=== PATIENT | male | born 1975 | race Caucasian/White ===

== ENCOUNTER 2020-07-01 08:09 | Inpatient (IN) | payer BC, OTHER ==
[~2020-07-01] VITALS: Ht 177.8 cm; Wt 115.3 kg
[~2020-07-01 08:09] MED LIST: AMLO-187 PO; ASPI-630 PO; CARV12.5 PO; DOCU-150 PO; GARL1CAP3 PO; GINK60CA3 PO; LAMO200T6 PO; LISI1TAB23 PO; LURA40TA PO; METF500T16 PO; OMEG1CAP6 PO; OXYC1TAB15 PO; RANI300C PO
[2020-07-01] MEDS ORDERED: ASPIRIN CHEWABLE 81 MG TABLET. PO ONE (08:30)
[2020-07-01 08:43] LABS: BASO # 0.2 x10^3/uL (0.0-0.2); BASO % 2 % (0-3); EOS # 0.2 x10^3/uL (0.0-0.7); EOS % 2 % (0-3); HEMATOCRIT 52.9 % (39.0-53.0); HEMOGLOBIN 18.4 g/dL (13.0-17.5); LYMPH # 2.8 x10^3/uL (1.0-4.8); LYMPH % 29 % (24-48); MEAN CORPUSCULAR HEMOGLOBIN 28 pg (25-35); MEAN CORPUSCULAR HGB CONC 35 g/dL (31-37); MEAN CORPUSCULAR VOLUME 82 fL (79-100); MONO # 0.7 x10^3/uL (0.0-1.1); MONO % 7 % (0-9); NEUT # 5.8 x10^3uL (1.8-7.7); NEUT % 60 % (31-73); PLATELET COUNT 190 x10^3/uL (140-400); RED BLOOD COUNT 6.47 x10^6/uL (4.30-5.70); RED CELL DISTRIBUTION WIDTH 13.4 % (11.5-14.5); WHITE BLOOD COUNT 9.7 x10^3/uL (4.0-11.0)
[2020-07-01 08:55] LABS: CALCIUM 8.5 mg/dL (8.5-10.1); CREATININE 1.2 mg/dL (0.7-1.3); GFR 65.5; POTASSIUM 3.9 mmol/L (3.5-5.1)
--- NOTE | 2020-07-01 08:55 | RAD ---
XR CHEST 1V CLINICAL INDICATIONS: Shortness of breath Comparison: July 02, 2016. Findings: No acute lung infiltrate or pleural effusion or pulmonary edema or lung mass or pneumothora x is seen. The heart size, pulmonary vasculature, mediastinum and both itzel are unremarkable. IMPRESSION: No acute radiographic abnormality is seen. Electronically signed by: Gokul Quinones MD (07/01/2020 8:53 AM) [id number]
--- NOTE | 2020-07-01 08:58 | PHYS DOC ---
Past History Past Medical History: Asthma, Diabetes, Hypertension, Other Additional Past Medical Histor: descending aortic dissection 1yr ago Past Surgical History: Other Additional Past Surgical Histo: hernia repair Alcohol Use: Rarely Drug Use: None Adult General Chief Complaint Chief Complaint: SHORTNESS OF BREATH HPI HPI Patient is a 44-year-old male presenting for shortness of breath. Patient worked overnight, states he came home and ate a meal and shortly after he laid down to go to sleep when he started developing shortness of breath and wheezing. Onset was 2 hours prior to arrival. Nothing known makes better, laying flat and physical exertion seem to make worse. Patient denies any overt pain but does admit " it feels like bubbling" deep in his substernal region without radiation. Timing of symptoms has been constant since onset. Patient reports history of treatment for hypertension and zwx-[id number]-[id number] diabetes among other things, states he has been out of all home medications "for a while" as he has not been able to afford them. Also has history of " I think descending aortic aneurysm" which he was seen and hospitalized for at [facility], no intervention was performed but admits he has biannual screening via CT imaging for this, last time this was supposed to be done was May 2020 but he did not follow-up on this. Associated symptoms today include nasal congestion, rhinorrhea, postnasal drip, shortness of breath, nonproductive cough and wheeze. Patient denies fever, known COVID-19 contact, ripping or tearing chest pain, abdominal pain, urinary symptoms, no changes in bladder or bowel function, no motor or sensory function changes. 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 States he works in a poorly ventilated area and often has inhalation exposure to concerning inhalants. Patient denies any personal history of tobacco use but was exposed to secondhand smoke from his father growing up as a child, used to carry an inhaler as a child but has not had nor required one in recent years. Review of Systems Review of Systems Fourteen body systems of review of systems have been reviewed. See HPI for pertinent positives and negative responses, other maharaj all other systems are negative, non-pertinent or non-contributory Current Medications Current Medications Current Medications Medications (Trade) Dose Ordered Sig/Jose Manuel Start Time Stop Time Status Last Admin Dose Admin Aspirin (Aspirin Chewable) 324 mg 1X ONCE 07/01/20 08:30 07/01/20 08:31 DC 07/01/20 08:28 324 MG Allergies Allergies Allergies Coded Allergies Type Severity Reaction Last Updated Verified erythromycin base Allergy Intermediate Rash 04/05/15 Yes Physical Exam Physical Exam General: Appears well, non toxic, and comfortable Skin: Warm, dry. Normal for ethnicity. HEENT: Atraumatic. PERRLA. Rhinorrhea and congestion. Nasal turbinates boggy b/l. Moist mucous membranes. Uvula midline. Maintaining secretions. No phonation changes. Neck: Trachea midline. Normal ROM. No stridor. Respiratory: Normal WOB. Tachypneic without overt respiratory distress or obvious accessory muscle use. Patient does have diffuse crackles most appreciated in bilateral lower bases Cardiovascular: Tachycardic rate with regular rhythm. Normal peripheral perfusion. Abdomen: Soft. Non tender. No distension. Back: Normal ROM. Musculoskeletal: No swelling or deformity. Neuro: Alert and oriented x 4. MAEE. Lymph: No cervical LAD. Psych: Normal affect and mood. Current Patient Data Vital Signs Vital Signs Date Time Temp Pulse Resp B/P (MAP) Pulse Ox O2 Delivery O2 Flow Rate FiO2 07/01/20 08:34 97.0 120 26 167/112 (130) 94 Lab Results Laboratory Tests Test 07/01/20 08:30 White Blood Count 9.7 x10^3/uL (4.0-11.0) Red Blood Count 6.47 x10^6/uL (4.30-5.70) H Hemoglobin 18.4 g/dL (13.0-17.5) H Hematocrit 52.9 % (39.0-53.0) Mean Corpuscular Volume 82 fL (79-100) Mean Corpuscular Hemoglobin 28 pg (25-35) Mean Corpuscular Hemoglobin Concent 35 g/dL (31-37) Red Cell Distribution Width 13.4 % (11.5-14.5) Platelet Count 190 x10^3/uL (140-400) Neutrophils (%) (Auto) 60 % (31-73) Lymphocytes (%) (Auto) 29 % (24-48) Monocytes (%) (Auto) 7 % (0-9) Eosinophils (%) (Auto) 2 % (0-3) Basophils (%) (Auto) 2 % (0-3) Neutrophils # (Auto) 5.8 x10^3uL (1.8-7.7) Lymphocytes # (Auto) 2.8 x10^3/uL (1.0-4.8) Monocytes # (Auto) 0.7 x10^3/uL (0.0-1.1) Eosinophils # (Auto) 0.2 x10^3/uL (0.0-0.7) Basophils # (Auto) 0.2 x10^3/uL (0.0-0.2) EKG EKG EKG ordered and reviewed by myself at 0842 hrs. as sinus rhythm at 112 bpm, unremarkable intervals, left axis deviation, T wave inversions noted in lead aVR and aVL, no acute ischemic findings, no STEMI Radiology/Procedures Radiology/Procedures XR CHEST 1V CLINICAL INDICATIONS: Shortness of breath Comparison: July 02, 2016. Findings: No acute lung infiltrate or pleural effusion or pulmonary edema or lung mass or pneumothorax is seen. The heart size, pulmonary vasculature, mediastinum and both itzel are unremarkable. IMPRESSION: No acute radiographic abnormality is seen. Electronically signed by: Gokul Quinones MD (07/01/2020 8:53 AM) [id number] EXAM: CT angiography of the chest with intravenous contrast. HISTORY: Shortness of breath. TECHNIQUE: Computed tomographic images of the chest were obtained following the administration of intravenous contrast according to angiography protocol. Multiplanar reformatting was performed and three dimensional maximum intensity projection images were obtained. *One or more of the following individualized dose reduction techniques were utilized for this examination: 1. Automated exposure control. 2. Adjustment of the mA and/or kV according to patient size. 3. Use of iterative reconstruction technique. COMPARISON: None. FINDINGS: Evaluation for pulmonary embolism is limited due to suboptimal contrast opacification of the pulmonary arteries. No central pulmonary embolism is seen. There is no aortic aneurysm or dissection. There is a prominent right paratracheal lymph node measuring 1.6 cm transaxially. There are are prominent bilateral hilar lymph nodes, the largest of which measures 1.6 cm within the right hilum. There is trace pericardial fluid. There is no pneumothorax or pleural effusion. There is groundglass infiltrate throughout both lungs. No consolidation is seen. There is no suspicious pulmonary nodule. There is no acute finding involving the upper abdomen or visualized osseous structures. There is degenerative change throughout the thoracic spine. There are multiple thoracic endplate Schmorl's nodes. IMPRESSION: 1. No convincing pulmonary embolism. Evaluated is limited due to suboptimal contrast opacification of the distal pulmonary arteries. 2. Groundglass infiltrate scattered throughout both lungs. Correlate for atypical pneumonia. 3. Prominent mediastinal and hilar lymph nodes, likely reactive given the aforementioned infiltrate. Electronically signed by: Molly Montoya MD (07/01/2020 11:02 AM) [id number] Heart Score HEART Score for Chest Pain: HEART Score for Chest Pain Response (Comments) Value History Slighlty/Non-Suspicious 0 Age >45 - < 65 1 Risk Factors 1 or 2 Risk Factors 1 Troponin < Normal Limit 0 Total 2 Risk Factors: Risk Factors: DM, Current or recent (<one month) smoker, HTN, HLP, family history of CAD, obesity. Risk Scores: Risk Factors: DM, Current or recent (<one month) smoker, HTN, HLP, family history of CAD, obesity. Course & Med Decision Making Course & Med Decision Making Airway patent, patient had increased work of breathing and hypoxic throughout duration of ER visit, vitals consistent for tachycardia and tachypnea on arrival Comprehensive history and physical exam performed with subsequent diagnostic work-up ordered Patient responded to ER intervention. Remained hypoxic and continued to require supplemental oxygen to keep O2 saturations greater than 90% CT chest showed findings consistent for atypical pneumonia. IV azithromycin and Rocephin administered while in ER Dr. oHover contacted regarding need for admission for continued inpatient medical management, he accepted patient under his care Patient updated on proposed plan of care, he was amenable for transport to [facility] for admission for continued inpatient medical management. All questions and concerns addressed prior to ER transportation to [facility] Critical Care Time This patient required critical care. Due to the fact that the patient required a significant amount of one on one physician - patient contact time, ordering and review of studies, arranging urgent treatment with development of a management plan, evaluation of patients response to treatment with frequent reassessments, and discussions with other providers this patient required 62 minutes of critical care time. Critical care time was indicated due to the inherent instability and/or potential for instability in this patient. The critical care time that is allocated to this patient is above and beyond any time spent on any other billable procedures performed on this patient. Dragon Disclaimer Dragon Disclaimer This electronic medical record was generated, in whole or in part, using a voice recognition dictation system. Departure Departure: Impression: Primary Impression: Atypical pneumonia Additional Impressions: Person under investigation for COVID-19 Hypoxia Disposition: ADMITTED INPT THIS HOSP Admitting Physician: Vipin Hoover Condition: STABLE Referrals: PCP,NO (PCP) Problem Qualifiers TYE GALLAGHER DO Jul 01, 2020 08:58
[2020-07-01 09:07] LABS: ALBUMIN 3.8 g/dL (3.4-5.0); ALBUMIN/GLOBULIN RATIO 1.2 (1.0-1.7); TOTAL BILIRUBIN 0.5 mg/dL (0.2-1.0); TOTAL PROTEIN 6.9 g/dL (6.4-8.2)
[2020-07-01] MEDS ORDERED: amLODIPine BESYLATE 5 MG TABLET PO ONE (09:15)
[2020-07-01] MEDS ORDERED: IV NORMAL SALINE 1,000ML 1,000 ML IV ONE (09:15)
[2020-07-01 10:07] LABS: INFLUENZA A PATIENT NEGATIVE (NEGATIVE); INFLUENZA B PATIENT NEGATIVE (NEGATIVE)
[2020-07-01 10:12] LABS: BARBITURATES NEG (NEG); BENZODIAZEPINES NEG (NEG); CANNABINOIDS NEG (NEG); COCAINE NEG (NEG); METHADONE NEG (NEG); OPIATES NEG (NEG); PHENCYCLIDINE NEG (NEG)
[2020-07-01 10:15] LABS: AMPHETAMINE/METHAMPHETAMINE NEG (NEG)
[2020-07-01] MEDS ORDERED: IOHEXOL 350 MG/ML 100 ML VIAL. IV ONE (10:30)
[2020-07-01] MEDS ORDERED: CONTRAST GIVEN. MC PRN (10:45)
--- NOTE | 2020-07-01 11:05 | RAD ---
EXAM: CT angiography of the chest with intravenous contrast. HISTORY: Shortness of breath. TECHNIQUE: Computed tomographic images of the chest were obtained following the administration of int ravenous contrast according to angiography protocol. Multiplanar reformatting was performed and three dimensional maximum intensity projection images were obtained. *One or more of the following individualized dose reduction techniques were utilized for this examina tion: 1. Automated exposure control. 2. Adjustment of the mA and/or kV according to patient size. 3. Use of iterative reconstruction technique. COMPARISON: None. FINDINGS: Evaluation for pulmonary embolism is limited due to suboptimal contrast opacification of th e pulmonary arteries. No central pulmonary embolism is seen. There is no aortic aneurysm or dissectio n. There is a prominent right paratracheal lymph node measuring 1.6 cm transaxially. There are are pr ominent bilateral hilar lymph nodes, the largest of which measures 1.6 cm within the right hilum. The re is trace pericardial fluid. There is no pneumothorax or pleural effusion. There is groundglass infiltrate throughout both lungs. No consolidation is seen. There is no suspicious pulmonary nodule. There is no acute finding involvin g the upper abdomen or visualized osseous structures. There is degenerative change throughout the tho racic spine. There are multiple thoracic endplate Schmorl's nodes. IMPRESSION: 1. No convincing pulmonary embolism. Evaluated is limited due to suboptimal contrast opacification of the distal pulmonary arteries. 2. Groundglass infiltrate scattered throughout both lungs. Correlate for atypical pneumonia. 3. Prominent mediastinal and hilar lymph nodes, likely reactive given the aforementioned infiltrate. Electronically signed by: Molly Montoya MD (07/01/2020 11:02 AM) [id number]
[2020-07-01] MEDS ORDERED: ACETAMINOPHEN 325 MG TABLET PO PRN (11:15)
[2020-07-01] MEDS ORDERED: AZITHROMYCIN 500 MG in IV NORMAL SALINE 250ML 250 ML IV ONE (11:15)
[2020-07-01] MEDS ORDERED: AZITHROMYCIN 500 MG VIAL. IV ONE (11:38)
[2020-07-01] MEDS ORDERED: IV NORMAL SALINE 250ML 250 ML ONE (11:38)
[2020-07-01] MEDS ORDERED: cefTRIAXone SODIUM 1 GM VIAL ONE (11:38)
[2020-07-01] MEDS ORDERED: IV NORMAL SALINE 50ML 50 ML ONE (11:38)
--- NOTE | 2020-07-01 13:31 | EKG ---
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
[2020-07-01] MEDS ORDERED: ENOXAPARIN 40 MG/0.4 ML SYRINGE. SQ SCH (14:15)
[2020-07-01] MEDS ORDERED: DEXTROSE 50% 25 GM / 50ML DISP.SYRIN. IV PRN (14:15)
--- NOTE | 2020-07-01 14:21 | HP ---
ADMIT DATE: 07/01/2020 ATTENDING PHYSICIAN: Dr. Perera. CHIEF COMPLAINT: Shortness of breath. HISTORY OF PRESENT ILLNESS: The patient is a 44-year-old gentleman, very active. He has a 2-day history of increasing shortness of breath. He has had low-grade fevers, nonproductive cough, some fevers and chills. In the ED, initial chest x-ray demonstrated no acute infiltrates; however, he had persistent hypoxemia requiring supplemental oxygen. Whenever they took his oxygen off, he desaturated to the mid 80s. We are concerned about a blood clot. I asked the ER physician to order a CT of the chest to look for blood clots; however, no clots were identified, but he does have ground glass appearing infiltrates in both bases bilaterally that is very subtle and picked up on the CT scan, not picked up by the chest x-ray. He has been swabbed for COVID-19, most likely has atypical pneumonia, certainly consistent with COVID-19 infection. PAST MEDICAL HISTORY: Significant for obesity, essential hypertension, and type 2 diabetes. CURRENT MEDICATIONS: Reviewed. He was taking amlodipine, aspirin, Coreg, docusate, Lamictal, lisinopril, hydrochlorothiazide, Latuda, metformin, [place]yth-3 acid, oxycodone and Zantac. ALLERGIES: HE HAS ALLERGIES TO ERYTHROMYCIN BASE. SOCIAL HISTORY: He is a nonsmoker, nondrinker. 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 FAMILY HISTORY: Father of complications of stroke at age 69. Mom is alive at age 75. PAST SURGICAL HISTORY: Hernia repair. REVIEW OF SYSTEMS: Significant for the localized symptoms of respiratory distress, mild nonproductive cough. No COVID exposure that he is aware of. All other systems reviewed and turned to be negative. PHYSICAL EXAMINATION: GENERAL: When I saw him, this is a pleasant young male. INITIAL VITAL SIGNS: Showed a blood pressure of 167/110, pulse 102 and regular, temperature 97.0 degrees Fahrenheit, oxygen saturation 94% on 2 liters by nasal cannula. HEENT: Head is without trauma. Pupils are reactive. Sclerae nonicteric. Oropharynx clear. NECK: Supple, no bruits. No stridor. LUNGS: Minimal rhonchi at bases. CARDIOVASCULAR: Showed distant heart tones. No gallops. Peripheral pulses are palpable and full. ABDOMEN: Soft, obese, protuberant. No organomegaly. Bowel sounds are hypoactive. EXTREMITIES: Showed no cyanosis or edema. NEUROLOGIC: Focally intact. SKIN: Warm and dry. LABORATORY DATA: Hemoglobin is 18.4 g/dL with a white count of 9700. Electrolytes are within normal range. Nonfasting blood sugar 346. Troponin initially was 0.02. ASSESSMENT: 1. A 44-year-old gentleman with atypical pneumonia, most likely COVID-19. 2. Hypoxemia, requiring supplemental oxygen. 3. Type 2 diabetes mellitus. 4. Secondary polycythemia. PLAN: 1. Admit to the inpatient unit. 2. Decadron. 3. Empiric Lovenox. 4. Accu-Cheks. 5. We will treat his sugars accordingly. LEÓN PERERA MD DR: JEFRY/laurel JOB#: [id number] / [id number]
[2020-07-01 15:49] VITALS: BP 143/96
--- NOTE | 2020-07-01 16:16 | NUR ---
PATIENT IS 44 Y O MALE ARRIVED TO ROOM 120 VIA EMS. PATIENT IS A/O X4, CALM AND PLEASANT UPON ASSESSMENT. PATIENT STATED HE WENT TO ER BECAUSE HE STARTED FEELING SOB AND DIFFICULTY BREATHING AND COUGH AFTER COMING HOME FROM WORK , HE WORK OVERNIGHT. PT STATED HE IS FEELING BETTER AFTER HAVING SOME O2 TX AT ED. PATIENT IS CURRENTLY ON RA WITH SAT 95%. DENIED PAIN, N/V/D. PATIENT IS ORIENTED TO ROOM AND HOSPITAL POLICIES. DOCTORS ORDERS OBTAINED WILL CONTINUE TO MONITOR.
[2020-07-01] MEDS: INSULIN LISPRO 300 UNITS/3 ML VIAL. SQ SCH (17:09)
[2020-07-01 20:36] VITALS: BP 130/88
[2020-07-01 23:45] VITALS: BP 160/108
[2020-07-02] MEDS: metFORMIN 500 MG TABLET PO SCH ×2 (00:15→08:38)
[2020-07-02] MEDS: LISINOPRIL 20 MG TABLET PO SCH ×2 (00:16→08:38)
--- NOTE | 2020-07-02 00:34 | NUR ---
CALLED TO NOTIFY OF ELEVATED BP AND BS. RECEIVED ORDERS FOR LISINOPRIL AND METFORMIN. NO OTHER ORDERS RECEIVED. PT IS UNABLE TO REMEMBER HOME MEDS. WILL CALL MOM IN THE MORNING TO GET A MED REC.
[2020-07-02 02:56] VITALS: BP 152/98
[2020-07-02] MEDS ORDERED: PANT40TA6 PO (06:01)
[2020-07-02] MEDS ORDERED: EMPA10TA PO (06:01)
[2020-07-02] MEDS ORDERED: AMLO-187 PO (06:01)
[2020-07-02] MEDS ORDERED: CARV25TA2 PO (06:01)
[2020-07-02] MEDS ORDERED: ATOR20TA58 PO (06:01)
[2020-07-02 06:10] VITALS: BP 182/123
[2020-07-02 06:11] LABS: BASO # 0.1 x10^3/uL (0.0-0.2); BASO % 1 % (0-3); EOS # 0.2 x10^3/uL (0.0-0.7); EOS % 2 % (0-3); HEMOGLOBIN 16.4 g/dL (13.0-17.5); LYMPH # 2.5 x10^3/uL (1.0-4.8); LYMPH % 24 % (24-48); MEAN CORPUSCULAR HEMOGLOBIN 28 pg (25-35); MEAN CORPUSCULAR HGB CONC 34 g/dL (31-37); MEAN CORPUSCULAR VOLUME 82 fL (79-100); MONO % 9 % (0-9); NEUT # 6.7 x10^3uL (1.8-7.7); NEUT % 63 % (31-73); PLATELET COUNT 186 x10^3/uL (140-400); RED BLOOD COUNT 5.82 x10^6/uL (4.30-5.70); RED CELL DISTRIBUTION WIDTH 13.5 % (11.5-14.5); WHITE BLOOD COUNT 10.5 x10^3/uL (4.0-11.0)
[2020-07-02 06:19] LABS: CALCIUM 8.1 mg/dL (8.5-10.1); CREATININE 0.8 mg/dL (0.7-1.3); GFR 104.5; POTASSIUM 3.8 mmol/L (3.5-5.1)
[2020-07-02] MEDS ORDERED: amLODIPine BESYLATE 10 MG TABLET PO ONE (06:30)
[2020-07-02] MEDS ORDERED: CARVEDILOL 12.5 MG TABLET PO ONE (06:30)
[2020-07-02] MEDS ORDERED: PANTOPRAZOLE 40 MG TABLET. PO SCH (07:30)
[2020-07-02 08:38] VITALS: BP 182/123
[2020-07-02] MEDS: INSULIN LISPRO 300 UNITS/3 ML VIAL. SQ SCH (08:39)
[2020-07-02] MEDS ORDERED: EMPAGLIFLOZIN 10 MG TABLET. PO SCH (09:00)
[2020-07-02] MEDS ORDERED: DEXAMETHASONE SOD PHOS 4 MG/ML VIAL. IVP SCH (09:00)
--- NOTE | 2020-07-02 10:50 | DS ---
DATE OF DISCHARGE: 07/02/2020 ATTENDING PHYSICIAN: Dr. Perera. FINAL DISCHARGE DIAGNOSES: 1. Atypical pneumonia at the bases, most likely COVID-19, swab is pending. 2. Hypoxemia, resolved. 3. Type 2 diabetes. 4. Secondary polycythemia. 5. Essential hypertension. HISTORY AND PHYSICAL: This pleasant 44-year-old gentleman with underlying diabetes and hypertension, presented with cough, chills and shortness of breath. He was found to have ground glass appearing infiltrates on CT of the chest. He required supplemental oxygen. He is admitted for further treatment and evaluation. He is not aware of any exposure. His COVID-19 swab was still pending at the time of discharge. PHYSICAL EXAMINATION: Please see the dictated note. PERTINENT LABORATORY AND X-RAY STUDIES: Admission hemoglobin was 18.4 g/dL with hydration, it came down to 16.4 g/dL, white count 10,500. Electrolytes are within normal range. Nonfasting blood sugar 152. COURSE IN THE HOSPITAL: The patient was admitted, started on empiric Decadron along with Lovenox, IV hydration, supplemental oxygen. He did well. He improved by the next day. His room air saturations was quite adequate, it was 98% on room air. Blood pressure was still marginal 150-160, pulse was normal and his temperature was 97.8 degrees Fahrenheit. I suggested that he can go home. We will keep him on Decadron 8 mg daily for the next 5 days and stop. In addition, Tussionex 5 mL q.12 hours p.r.n. cough and no change in his home meds. I did ask him to increase his metformin to 1000 mg b.i.d. He will continue his pantoprazole, Jardiance, Coreg, Lipitor and amlodipine doses unchanged. He will follow up with his PCP. He still remains contagious. He is going to call tomorrow for the results of his COVID-19 coronavirus swab. He was discharged then in stable condition with explicit instructions and followup care. LEÓN PERERA MD DR: JEFRY/laurel JOB#: [id number] / [id number]
[2020-07-02] MEDS ORDERED: ATORVASTATIN CALCIUM 20 MG TABLET PO SCH (21:00)
[2020-07-03] MEDS ORDERED: CARVEDILOL 12.5 MG TABLET PO SCH (08:00)
[2020-07-03] MEDS ORDERED: amLODIPine BESYLATE 10 MG TABLET PO SCH (09:00)
--- NOTE | 2020-07-04 09:08 | NUR ---
IP: patient notified of COVID result.
== END 2020-07-02 11:12 | disposition home or self-care (01) | DRG 177 ==
LOC: ER 08:09 → 1 SOUTH 11:20
PROVIDERS: ADMIT Hospitalist; ATTEND Hospitalist
DX: U07.1 COVID-19 (principal); J12.82 Pneumonia due to coronavirus disease 2019; D75.1 Secondary polycythemia; E11.9 Type 2 diabetes mellitus without complications; I10 Essential (primary) hypertension; J45.909 Unspecified asthma, uncomplicated; R09.02 Hypoxemia; E66.9 Obesity, unspecified; Z20.822 Contact with and (suspected) exposure to COVID-19; Z77.098 Contact with and (suspected) exposure to other hazardous, chiefly nonmedicinal, chemicals; Z77.22 Contact with and (suspected) exposure to environmental tobacco smoke (acute) (chronic); Z79.84 Long term (current) use of oral hypoglycemic drugs; Z88.8 Allergy status to other drugs, medicaments and biological substances; Z79.899 Other long term (current) drug therapy; Z68.36 Body mass index [BMI] 36.0-36.9, adult
CPT/HCPCS: 36415; 71045; 71275; 80048; 80053; 80307; 82947; 83880; 84484; 85025; 85379; 87804; 93005; 96361; 96365; 96368; 99291; J0456; J0696; J1100; J1650; J1815; J7050; Q9967; U0003; J7030

== ENCOUNTER 2021-04-10 00:05 | Emergency (ER) | payer BC ==
[~2021-04-10] VITALS: Ht 177.8 cm; Wt 110.0 kg
[~2021-04-10 00:05] MED LIST changes: +ATOR20TA58 PO; +CARV25TA2 PO; -DOCU-150 PO; +DOCU-158 PO; +EMPA10TA PO; +PANT40TA6 PO
[2021-04-10] MEDS ORDERED: cloNIDine HCL 0.1 MG TABLET PO ONE (00:30)
[2021-04-10] MEDS ORDERED: LISINOPRIL 10 MG TABLET PO ONE (00:30)
[2021-04-10] MEDS ORDERED: hydrALAZINE 20 MG/ML VIAL. IV ONE (00:30)
[2021-04-10] MEDS ORDERED: OXYMETAZOLINE 0.05% NASAL SPRAY 30ML BOTTLE. NS ONE (00:30)
--- NOTE | 2021-04-10 00:31 | PHYS DOC ---
Past History Past Medical History: Asthma, Diabetes, Hypertension, Other Additional Past Medical Histor: descending aortic dissection 1yr ago Past Surgical History: Other Additional Past Surgical Histo: hernia repair Alcohol Use: None Drug Use: None General Adult EDM: Chief Complaint: NOSEBLEED HPI: HPI: 45-year-old male presents with left-sided nosebleed. He thought that he had a runny nose but then discovered that it was bleeding. He has tried to pack it with paper towels but he believes it is still running. He denies any falls or trauma. He has no headache, chest pain, dizziness, or any other symptoms. The patient has a history of aortic dissection was treated with medication. He is supposed to be on high blood pressure medicine but does not take it. He has not had any in over a month. Patient denies fever or chills. Review of Systems: Review of Systems: Constitutional: Denies fever or chills Eyes: Denies change in visual acuity HENT: Left-sided nosebleed Respiratory: Denies cough or shortness of breath Cardiovascular: Denies chest pain or edema GI: Denies abdominal pain, nausea, vomiting, bloody stools or diarrhea : Denies dysuria Musculoskeletal: Denies back pain or joint pain Integument: Denies rash Neurologic: Denies headache, focal weakness or sensory changes Endocrine: Denies polyuria or polydipsia Lymphatic: Denies swollen glands Psychiatric: Denies depression or anxiety Current Medications: Current Meds: Current Medications Medications (Trade) Dose Ordered Sig/Jose Manuel Start Time Stop Time Status Last Admin Dose Admin Clonidine HCl (Catapres) 0.2 mg 1X ONCE 04/10/21 00:30 04/10/21 00:31 Hydralazine HCl (Apresoline) 10 mg 1X ONCE 04/10/21 00:30 04/10/21 00:31 Lisinopril (Prinivil) 20 mg 1X ONCE 04/10/21 00:30 04/10/21 00:31 Oxymetazoline HCl (Afrin) 2 spray 1X ONCE 04/10/21 00:30 04/10/21 00:31 Allergies: Allergies: Allergies Coded Allergies Type Severity Reaction Last Updated Verified erythromycin base Allergy Intermediate Rash 04/05/15 Yes Physical Exam: PE: Constitutional: Well developed, well nourished, no acute distress, non-toxic appearance. [] HENT: Normocephalic, atraumatic, bilateral external ears normal, oropharynx moist, no oral exudates, nose with evidence of recent bleed of the left nare. [] Eyes: PERRLA, EOMI, conjunctiva normal, no discharge. [] Neck: Normal range of motion, no tenderness, supple, no stridor. [] Cardiovascular: Heart rate regular rhythm, no murmur [] Lungs & Thorax: Bilateral breath sounds clear to auscultation [] Abdomen: Bowel sounds normal, soft, no tenderness, no masses, no pulsatile masses. [] Skin: Warm, dry, no erythema, no rash. [] Back: No tenderness, no CVA tenderness. [] Extremities: No tenderness, no cyanosis, no clubbing, ROM intact, no edema. [] Neurologic: Alert and oriented X 3, normal motor function, normal sensory function, no focal deficits noted. [] Psychologic: Affect normal, judgement normal, mood normal. [] Current Patient Data: Vital Signs: Vital Signs Date Time Temp Pulse Resp B/P (MAP) Pulse Ox O2 Delivery O2 Flow Rate FiO2 04/10/21 00:16 98.2 83 16 265/160 (195) 96 Room Air EKG: EKG: Sinus rhythm, rate 84, leftward axis, no significant ST elevation, Q waves 2, 3, aVF. [] Radiology/Procedures: Radiology/Procedures: [] Heart Score: C/O Chest Pain: N/A Risk Factors: Risk Factors: DM, Current or recent (<one month) smoker, HTN, HLP, family history of CAD, obesity. Risk Scores: Score 0 - 3: 2.5% MACE over next 6 weeks - Discharge Home Score 4 - 6: 20.3% MACE over next 6 weeks - Admit for Clinical Observation Score 7 - 10: 72.7% MACE over next 6 weeks - Early Invasive Strategies Course & Med Decision Making: Course & Med Decision Making Pertinent Labs and Imaging studies reviewed. (See chart for details) On arrival the patient had a blood pressure of 265/160. We will check it on the other side given his history of dissection. I have ordered 0.2 of clonidine, 20 mg lisinopril, 10 mg of hydralazine to start. The patient labs are si gnificant for glucose of 306 with a normal anion gap. I ordered 10 mg of metoprolol IV and 5 units of regular insulin. His EKG suggests myocardial damage at some point but does not appear to be acute. He has no chest pain or shortness of breath at this time. Despite his blood pressure, he is completely asymptomatic. We did give him Afrin to control his nosebleed. It is controlled at this time. The patient's blood pressure has improved to 172/112. I strongly advised him to follow-up with his primary physician and get back on hypertension medication. He states verbal understanding. He is stable for discharge at this time. [] Dragon Disclaimer: Dragon Disclaimer: This electronic medical record was generated, in whole or in part, using a voice recognition dictation system. Departure Departure: Impression: Primary Impression: Anterior epistaxis Additional Impression: Hypertension Qualified Codes: I10 - Essential (primary) hypertension Referrals: PCP,NO (PCP) Patient Instructions: Hyperglycemia, [id number], Hypertension, [id number], Nosebleed, [id number] MIKAEL MEDINA DO Apr 10, 2021 00:31
[2021-04-10 00:58] LABS: BASO % 0 % (0-3); EOS # 0.2 x10^3/uL (0.0-0.7); EOS % 2 % (0-3); HEMATOCRIT 51.6 % (39.0-53.0); HEMOGLOBIN 17.9 g/dL (13.0-17.5); LYMPH # 2.6 x10^3/uL (1.0-4.8); LYMPH % 27 % (24-48); MEAN CORPUSCULAR HEMOGLOBIN 29 pg (25-35); MEAN CORPUSCULAR HGB CONC 35 g/dL (31-37); MEAN CORPUSCULAR VOLUME 83 fL (79-100); MONO # 0.8 x10^3/uL (0.0-1.1); MONO % 8 % (0-9); NEUT # 6.1 x10^3uL (1.8-7.7); NEUT % 63 % (31-73); PLATELET COUNT 180 x10^3/uL (140-400); RED BLOOD COUNT 6.25 x10^6/uL (4.30-5.70); RED CELL DISTRIBUTION WIDTH 12.9 % (11.5-14.5); WHITE BLOOD COUNT 9.6 x10^3/uL (4.0-11.0)
[2021-04-10 01:06] LABS: CALCIUM 9.8 mg/dL (8.5-10.1); GFR 80.4
[2021-04-10 01:11] LABS: ALBUMIN 3.8 g/dL (3.4-5.0); ALBUMIN/GLOBULIN RATIO 1.2 (1.0-1.7); TOTAL BILIRUBIN 0.6 mg/dL (0.2-1.0); TOTAL PROTEIN 6.9 g/dL (6.4-8.2)
[2021-04-10] MEDS ORDERED: METOPROLOL TARTRATE 5 MG/5 ML VIAL. IV ONE (01:30)
[2021-04-10] MEDS ORDERED: INSULIN REGULAR 100 UNIT/ML 3ML VIAL. IV ONE (01:30)
--- NOTE | 2021-04-10 01:30 | EKG ---
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 CLINICAL CORRELATION RECOMMENDED Electronically Signed On 04-10-2021 10:19:23 CDT by Leon Romero MD
[2021-04-10 02:10] VITALS: BP 144/81
== END 2021-04-10 02:24 | disposition home or self-care (01) ==
LOC: ER 00:05
DX: R04.0 Epistaxis (principal); I10 Essential (primary) hypertension; J45.909 Unspecified asthma, uncomplicated; E11.9 Type 2 diabetes mellitus without complications; Z88.1 Allergy status to other antibiotic agents
CPT/HCPCS: 36415; 80053; 82947; 84484; 85025; 93005; 96374; 96375; 99285; J0360; J1815; J3490

== ENCOUNTER 2021-09-26 08:39 | Emergency (ER) | payer BC ==
[~2021-09-26] VITALS: Ht 177.8 cm; Wt 100.9 kg
[~2021-09-26 08:39] MED LIST changes: -EMPA10TA PO; +EMPA10TA3 PO; -LISI1TAB23 PO; +LISI1TAB35 PO; -LURA40TA PO; +LURA40TA2 PO
--- NOTE | 2021-09-26 08:53 | PHYS DOC ---
Past History Past Medical History: Asthma, Diabetes, Hypertension, Other Additional Past Medical Histor: descending aortic dissection 1yr ago Past Surgical History: Other Additional Past Surgical Histo: hernia repair Smoking: Cigarettes Alcohol Use: Sober Drug Use: None General Adult EDM: Chief Complaint: HEADACHE HPI: HPI: Patient is a 45 year old male who presents with headache since , which was 5 days ago. No thunderclap headache described. The pain is been progressive, global. He denies vision loss or visual deficits. He denies numbness or tingling or focal motor weakness. He denies neck pain or stiffness. He does report some mild nausea, no vomiting. He denies fall, head injury, syncope or near syncope. He does report some epigastric discomfort and feels like his stomach is "empty" he reports no bowel habit changes. He denies intrascapular, back or flank pain. He denies mid or lower abdominal pain. He denies urinary symptoms. He has chronically uncontrolled and severe hypertension. He has not had his medications in over a month. It has been 3 or 4 years since he seen his primary care physician. He was last seen at a free clinic over a year ago. He reports that he has not been taking his medications as prescribed since that time, and has tried to make him stretch until about a month and a half ago He also has poorly controlled type 2 diabetes mellitus, reportedly has not taken his Metformin for over a month and a half as well. He lost his insurance a few years ago, so he stopped seeing a primary care doctor routinely. He has had a previous descending aortic dissection, which was repaired at [facility] on the [place], this occurred secondary to severe uncontrolled hypertension. He does report having had a previous history of migraines, though he has not experienced these in many years. He took a dose of ibuprofen yesterday, none taken today Review of Systems: Review of Systems: As per HPI. Allergies: Allergies: Allergies Coded Allergies Type Severity Reaction Last Updated Verified erythromycin base Allergy Intermediate Rash 09/26/21 Yes Physical Exam: PE: Constitutional: Well developed, well nourished, no acute distress, non-toxic appearance. Appears older than stated age. HENT: Normocephalic, atraumatic, oropharynx is patent and clear. Mucous membranes are moist. TMs are clear bilaterally. Nares are patent clear without rhinorrhea epistaxis. No facial or oral edema. Eyes: PERRL, EOMI, conjunctiva normal, no discharge. No scleral icterus. No conjunctival injection, no chemosis, no evidence of periorbital ecchymosis, edema or erythema. Bilateral horizontal nystagmus is noted. Neck: Normal range of motion, no tenderness, supple, no stridor. Trachea is midline. No meningismus. No midline tenderness or step-offs. Cardiovascular: Tachycardic, regular, heart rate in the low 100s, +2 radial and +2 posterior tibial pulses bilaterally. No cyanosis, no edema Lungs & Thorax: Lungs are clear to auscultation bilaterally without rales, rhonchi or wheezes. Abdomen: Abdomen is soft, nondistended, nontender to palpation. No palpable masses organomegaly. No CVA tenderness. No flank abdominal ecchymoses. No palpable pulsatile mass. No audible bruit. Skin: Warm, dry, no erythema, no rash. [] Back: No tenderness, no CVA tenderness. [] Extremities: No tenderness, no cyanosis, no clubbing, ROM intact, no edema. No calf tenderness. Neurologic: He is awake, alert, oriented x3. Cranial nerves II through XII grossly intact. 5 out of 5 motor strength all 4 extremities. Sensation is grossly intact. No limb ataxia. No pronator drift or dysmetria. Speech is clear and fluent. Gait is steady, no gait ataxia. Nonfocal neurologic exam. Psychologic: Affect normal, judgement normal, mood normal. [] EKG: EKG: EKG is interpreted at 0940 Rhythm is sinus Rate is 85 bpm Piercy is left LVH Early repolarization abnormalities Q waves II, III, aVF No STEMI Compared with EKG from 04/10/2021, no significant changes EKG interpreted at 1108 Rhythm is sinus Rate is 79 bpm Piercy is left LVH Early repolarization abnormalities Q waves II, III, aVF No STEMI Discussed with Dr. Goodman of cardiology, agrees with read Radiology/Procedures: Radiology/Procedures: IMAGING REPORT Signed PATIENT: YONATHAN SWEENEY ACCOUNT: [id number] : 1975 LOCATION: ER AGE: 45 SEX: M EXAM STATUS: REG ER ORD. PHYSICIAN: ALBINO WALDROP DO REASON: headache, HTN PROCEDURE: CT HEAD WO CONTRAST CT HEAD/BRAIN WO History: Reason: headache, HTN / Spl. Instructions: / History: Comparison: None. Technique: Noncontrast CT imaging was performed of the head. Exposure: One or more of the following individualized dose reduction techniques were utilized for this examination: 1. Automated exposure control 2. Adjustment of the mA and/or kV according to patient size 3. Use of iterative reconstruction technique. Findings: No intracranial hemorrhage. No mass effect. No hydrocephalus. Hyperdense dural venous sinuses most prominent within the superior sagittal and transverse venous sinuses. Additional hyperdense cortical veins superiorly. Mild foci of decreased attenuation within the hemispheric white matter. Right inferior basal ganglia prominent perivascular space. Imaged orbits are unremarkable. Imaged paranasal sinuses and mastoid air cells are clear. No acute calvarial fracture. Impression: 1. Hyperdense dural venous sinuses and cortical veins, can be seen with recent contrast injection or dural venous sinus thrombosis. Recommend clinical evaluation. CT or MRI venogram can further assess if indicated. 2. Mild nonspecific white matter changes. Differential consideration includes sequelae of chronic microvascular ischemia, migraine headaches, less likely demyelinating disease or vasculitis. Electronically signed by: Hernán Betts DO (09/26/2021 10:26 AM) [id number] DICTATED AND SIGNED BY: HERNÁN BETTS DO DATE: 09/26/21 1016 CC: ALBINO WALDROP DO; PCP,NO ~ IMAGING REPORT Signed PATIENT: YONATHAN SWEENEY ACCOUNT: [id number] : 1975 LOCATION: ER AGE: 45 SEX: M EXAM STATUS: REG ER ORD. PHYSICIAN: ALBINO WALDROP DO REASON: htn, chest pain PROCEDURE: PORTABLE CHEST 1V XR CHEST 1V History: Reason: htn, chest pain / Spl. Instructions: / History: Comparison: July 01, 2020 Findings: No consolidation or pleural effusion. Normal heart size. No pneumothorax. Impression: 1. No acute cardiopulmonary process. Electronically signed by: Hernán Betts DO (09/26/2021 10:14 AM) [id number] DICTATED AND SIGNED BY: HERNÁN BETTS DO DATE: 09/26/21 1013 CC: PALMA,ALBINO M DO; PCP,NO ~ IMAGING REPORT Signed PATIENT: YONATHAN SWEENEY ACCOUNT: [id number] : 1975 LOCATION: ER AGE: 45 SEX: M EXAM STATUS: REG ER ORD. PHYSICIAN: ALBINO WALDROP DO REASON: headache, dizzy, nausea PROCEDURE: CT ANGIOGRAPHY HEAD AND NECK CTA HEAD AND NECK W/WO CONTRAST History:Reason: headache, dizzy, nausea / Spl. Instructions: OMNI 350 75CC GIVEN / History: Technique: After bolus of intravenous contrast, volumetric CT data acquisition was acquired of the head and neck. Multiplanar reconstruction images to include MIP and 3-D reconstruction images are submitted. Exposure: One or more of the following individualized dose reduction techniques were utilized for this examination: 1. Automated exposure control 2. Adjustment of the mA and/or kV according to patient size 3. Use of iterative reconstruction technique. Comparison: Noncontrast head CT September 26, 2021 Any determination of stenosis is based on NASCET criteria. Head CTA: ICA: No stenosis, occlusion or aneurysm. MCA: No stenosis, occlusion or aneurysm. LAMONT: No stenosis, occlusion or aneurysm. 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 Basilar artery: Multifocal irregularity and narrowing of the basilar artery. No occlusion. Distal vertebral arteries: No stenosis, occlusion or aneurysm. No evidence of dural venous sinus thrombosis. Congenitally small right transverse and sigmoid venous sinuses. CT angiogram neck: Aortic arch: Mild retrolisthesis plaque within the aortic arch. Subclavian artery. Mild narrowing of the left proximal subclavian artery due to soft plaque. No occlusion. Common carotid arteries: No stenosis, occlusion or dissection. Internal carotid arteries: No stenosis, occlusion or dissection. Mild atheromatous plaque within the carotid bifurcations. Tortuous internal carotid arteries within the upper neck. External carotid arteries: Patent Vertebral arteries: Mild narrowing of the left proximal vertebral artery. No occlusion. Imaged lung apices are unremarkable. Soft tissues appear normal. Bones: Sclerotic lesion within the right lateral second rib, most likely bone island. Multilevel cervical spondylosis most prominent C5-C6 and C6-C7. Impression: CT angiogram head: 1. No intracranial arterial occlusion. 2. Multifocal irregularity and mild narrowing of the basilar artery. CT angiogram neck: 1. No arterial occlusion within the neck. 2. Mild narrowing of the left proximal vertebral and subclavian arteries. 3. Mild atheromatous plaque. Electronically signed by: Hernán Betts DO (09/26/2021 1:34 PM) [id number] DICTATED AND SIGNED BY: HERNÁN BETTS DO DATE: 09/26/21 1320 CC: ALBINO WALDROP DO; PCP,NO ~ IMAGING REPORT Signed PATIENT: YONATHAN SWEENEY ACCOUNT: [id number] : 1975 LOCATION: ER AGE: 45 SEX: M EXAM STATUS: REG ER ORD. PHYSICIAN: ALBINO WALDROP DO REASON: headache, dizzy, nausea PROCEDURE: CT ANGIO CHEST W ABD PEL W/ EXAMINATION: CTA CHEST_ABDOMEN_AND PELVIS. Technique: Axial images with coronal and sagittal reconstructions with MIP technique are performed of chest abdomen and pelvis with angiogram protocol. 75 cc of Omnipaque 350 administered intravenously. One or more of the following radiation dose reduction techniques was used: automated exposure control, adjustment of mA and/or KV according to patient size, and/or utilization of iterative reconstruction technique. HISTORY: 45 years Male Reason: headache, dizzy, nausea COMPARISON: June 2020. FINDINGS: CTA chest: The thoracic aorta is normal in caliber. There is no dissection. Pulmonary arteries demonstrate no filling defects to suggest pulmonary embolism. The heart size is normal. There is no pericardial or pleural effusion. There is no mediastinal mass or lymphadenopathy. Small the right hilar lymph node measuring catheter 1.1 cm is seen similar to July 01, 2020 study. No axillary lymphadenopathy. The lungs demonstrate no significant consolidation, mass or suspicious nodule. The osseous structures demonstrate mild degenerative changes. CTA abdomen and pelvis: The liver, gallbladder, pancreas, spleen, and adrenal glands appear unremarkable. The kidneys have symmetric enhancement. No hydronephrosis. There are from left renal cysts measuring up to 1.7 cm in size. The abdominal aorta is normal in caliber. There is no dissection. The major branches including the SMA, celiac trunk and the MARLENY are patent. The renal arteries are patent. There is an accessory renal artery on the right side is also patent. There is diverticulosis. No diverticulitis. The appendix is normal. No bowel obstruction. No significant free fluid or fluid collection in the abdomen or pelvis is seen. In the right inguinal canal is small amount of fluid and 3 cm structure only partially visualized, could represent retractile testis. The osseous structures demonstrate degenerative with multilevel prominent posterior osteophytes resulting in spinal canal stenosis. IMPRESSION: CTA chest: No acute process. CT abdomen and pelvis: 1. No aortic dissection or aneurysm. 2. Diverticulosis. No diverticulitis. 3. The right inguinal canal demonstrates tiny amount of fluid and a partially visualized structure could represent a retracted high riding testicle. Electronically signed by: Elli lBake MD (09/26/2021 1:45 PM) [id number] DICTATED AND SIGNED BY: ELLI BLAKE MD DATE: 09/26/21 1310 CC: ALBINO WALDROP DO; PCP,NO ~ Heart Score: C/O Chest Pain: Yes HEART Score for Chest Pain: HEART Score for Chest Pain Response (Comments) Value History Slighlty/Non-Suspicious 0 ECG Nonspecific Repolarizatio 1 Age < 45 0 Risk Factors 1 or 2 Risk Factors 1 Troponin < Normal Limit 0 Total 2 Risk Factors: Risk Factors: DM, Current or recent (<one month) smoker, HTN, HLP, family history of CAD, obesity. Risk Scores: Score 0 - 3: 2.5% MACE over next 6 weeks - Discharge Home Score 4 - 6: 20.3% MACE over next 6 weeks - Admit for Clinical Observation Score 7 - 10: 72.7% MACE over next 6 weeks - Early Invasive Strategies Course & Med Decision Making: Course & Med Decision Making Pertinent Labs and Imaging studies reviewed. (See chart for details) The patient was given his usual doses of his p.o. medications. He admits that he normally takes carvedilol, lisinopril and amlodipine. He was given all these. Blood pressure is markedly improved. Headache is resolved. He did have an episode of nausea and lightheadedness/dizziness. This resolved rather quickly. Repeat EKG was done. Not significantly changed from previous. I did discuss this with cardiology as well. He is observed for several hours in the ED. He has a nonfocal neurologic exam. He reports that he has no further headache symptoms. I have discussed all of the findings, differential diagnosis and plan of care with him. He feels very comfortable with the plan for discharge home. He has insurance now, and he has been in contact with his PCPs office, while here in the ED, he plans on following up soon. I recommend that he procure an appointment SUNDAY. He is given 60 days worth of his medications. I have explained that he must comply with diet as well. He is given a litany of resources for this. There is no current indication for further invasive exams, imaging or admission. He is comfortable with the plan of care. Very strict return precautions are given. He verbalizes understanding. He is discharged in stable and improved condition. Lina Disclaimer: Lina Disclaimer: This electronic medical record was generated, in whole or in part, using a voice recognition dictation system. Departure Departure: Impression: Primary Impression: Uncontrolled hypertension Additional Impressions: Uncontrolled type 2 diabetes mellitus Qualified Codes: E11.65 - Type 2 diabetes mellitus with hyperglycemia Headache Qualified Codes: R51.9 - Headache, unspecified Disposition: 01 HOME / SELF CARE / HOMELESS Condition: STABLE Referrals: PCPRADHA (PCP) Patient Instructions: 2400 Calorie Diet for Diabetes Meal Planning, Diabetes Meal Planning Guide, Hyperglycemia, Hypertension Additional Instructions: Take the medications as directed. Please eat a low-sodium, heart healthy diet. Please eat an [place] [employer] diet. Stay hydrated. You may take [id number] Tylenol or ibuprofen as needed for pain. Return to the ER immediately for chest pain, shortness of breath, uncontrolled vomiting, severe abdominal pain, dehydration, focal weakness, fall, head injury, loss of consciousness or any other concerns. Please contact your primary care doctor to arrange for close follow-up. Scripts Metformin Hcl (METFORMIN HCL) 500 Mg Tablet 1 TAB PO BID for diabetes mellitus, #60 TAB 1 Refill Prov: ALBINO WALDROP DO 09/26/21 Carvedilol (CARVEDILOL ) 12.5 Mg Tablet 12.5 MG PO BIDWMEALS for hypertension, #60 TAB 1 Refill Prov: PALMASYDNIN Elizabeth DO 09/26/21 Lisinopril (LISINOPRIL) 10 Mg Tablet 1 TAB PO DAILY for hypertension, #30 TAB 1 Refill Prov: ALBINO WALDROP DO 09/26/21 Amlodipine Besylate (AMLODIPINE BESYLATE) 5 Mg Tablet 1 TAB PO DAILY for hypertension, #30 TAB 1 Refill Prov: PALMASYDNIN Elizabeth DO 09/26/21 ALBINO WALDROP DO Sep 26, 2021 08:53
[2021-09-26] MEDS ORDERED: CARVEDILOL 12.5 MG TABLET PO ONE (09:30)
[2021-09-26] MEDS ORDERED: amLODIPine BESYLATE 5 MG TABLET PO ONE (09:30)
[2021-09-26] MEDS ORDERED: LISINOPRIL 10 MG TABLET PO ONE (09:30)
[2021-09-26 09:45] LABS: BASO # 0.2 x10^3/uL (0.0-0.2); BASO % 2 % (0-3); EOS # 0.1 x10^3/uL (0.0-0.7); EOS % 1 % (0-3); HEMATOCRIT 54.7 % (39.0-53.0); HEMOGLOBIN 19.2 g/dL (13.0-17.5); LYMPH # 2.4 x10^3/uL (1.0-4.8); LYMPH % 23 % (24-48); MEAN CORPUSCULAR HEMOGLOBIN 29 pg (25-35); MEAN CORPUSCULAR HGB CONC 35 g/dL (31-37); MEAN CORPUSCULAR VOLUME 83 fL (79-100); MONO # 0.8 x10^3/uL (0.0-1.1); MONO % 7 % (0-9); NEUT # 7.3 x10^3uL (1.8-7.7); NEUT % 67 % (31-73); PLATELET COUNT 182 x10^3/uL (140-400); RED BLOOD COUNT 6.59 x10^6/uL (4.30-5.70); RED CELL DISTRIBUTION WIDTH 12.8 % (11.5-14.5); WHITE BLOOD COUNT 10.8 x10^3/uL (4.0-11.0)
--- NOTE | 2021-09-26 09:51 | EKG ---
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
[2021-09-26 09:55] LABS: CALCIUM 8.8 mg/dL (8.5-10.1); GFR 80.4; POTASSIUM 3.3 mmol/L (3.5-5.1)
[2021-09-26 10:08] LABS: ALBUMIN 3.5 g/dL (3.4-5.0); ALBUMIN/GLOBULIN RATIO 1.1 (1.0-1.7); MAGNESIUM 2.2 mg/dL (1.8-2.4); PHOSPHORUS 4.1 mg/dL (2.6-4.7); TOTAL BILIRUBIN 0.5 mg/dL (0.2-1.0); TOTAL PROTEIN 6.6 g/dL (6.4-8.2)
--- NOTE | 2021-09-26 10:17 | RAD ---
XR CHEST 1V History: Reason: htn, chest pain / Spl. Instructions: / History: Comparison: July 01, 2020 Findings: No consolidation or pleural effusion. Normal heart size. No pneumothorax. Impression: 1. No acute cardiopulmonary process. Electronically signed by: Hernán Betts DO (09/26/2021 10:14 AM) [id number]
--- NOTE | 2021-09-26 10:28 | RAD ---
CT HEAD/BRAIN WO History: Reason: headache, HTN / Spl. Instructions: / History: Comparison: None. Technique: Noncontrast CT imaging was performed of the head. Exposure: One or more of the following individualized dose reduction techniques were utilized for thi s examination: 1. Automated exposure control 2. Adjustment of the mA and/or kV according to patient size 3. Use of iterative reconstruction technique. Findings: No intracranial hemorrhage. No mass effect. No hydrocephalus. Hyperdense dural venous sinuses most prominent within the superior sagittal and transverse venous sin uses. Additional hyperdense cortical veins superiorly. Mild foci of decreased attenuation within the hemispheric white matter. Right inferior basal ganglia prominent perivascular space. Imaged orbits are unremarkable. Imaged paranasal sinuses and mastoid air cells are clear. No acute ca lvarial fracture. Impression: 1. Hyperdense dural venous sinuses and cortical veins, can be seen with recent contrast injection or dural venous sinus thrombosis. Recommend clinical evaluation. CT or MRI venogram can further assess if indicated. 2. Mild nonspecific white matter changes. Differential consideration includes sequelae of chronic mi crovascular ischemia, migraine headaches, less likely demyelinating disease or vasculitis. Electronically signed by: Hernán Betts DO (09/26/2021 10:26 AM) [id number]
[2021-09-26 10:35] LABS: PLT ESTIMATE ADEQUATE (ADEQUATE)
[2021-09-26 10:56] LABS: BARBITURATES NEG (NEG); BENZODIAZEPINES NEG (NEG); CANNABINOIDS NEG (NEG); COCAINE NEG (NEG); METHADONE NEG (NEG); OPIATES NEG (NEG); PHENCYCLIDINE NEG (NEG)
[2021-09-26] MEDS ORDERED: ONDANSETRON PF 4 MG/2 ML VIAL. ONE (10:59)
[2021-09-26] MEDS ORDERED: IV NORMAL SALINE 1,000ML 1,000 ML IV ONE (11:00)
[2021-09-26 11:03] LABS: BACTERIA,URINE 0 /HPF (0-FEW); CLARITY,URINE CLEAR; COLOR,URINE YELLOW; GLUCOSE,URINE >=1000 mg/dL (NEG); NITRITE,URINE NEG (NEG); RBC,URINE OCC /HPF (0-2); UROBILINOGEN,URINE 0.2 mg/dL (0.2 mg/dL); WBC,URINE OCC /HPF (0-4)
[2021-09-26 11:09] LABS: AMPHETAMINE/METHAMPHETAMINE NEG (NEG)
--- NOTE | 2021-09-26 11:13 | EKG ---
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
[2021-09-26] MEDS ORDERED: POTASSIUM CHLORIDE 20 MEQ TABLET.ER. PO ONE (11:15)
[2021-09-26] MEDS ORDERED: ONDANSETRON PF 4 MG/2 ML VIAL. IVP ONE (11:15)
[2021-09-26] MEDS ORDERED: IOHEXOL 350 MG/ML 100 ML VIAL. IV ONE ×2 (12:15)
--- NOTE | 2021-09-26 13:37 | RAD ---
CTA HEAD AND NECK W/WO CONTRAST History:Reason: headache, dizzy, nausea / Spl. Instructions: OMNI 350 75CC GIVEN / History: Technique: After bolus of intravenous contrast, volumetric CT data acquisition was acquired of the he ad and neck. Multiplanar reconstruction images to include MIP and 3-D reconstruction images are submi tted. Exposure: One or more of the following individualized dose reduction techniques were utilized for thi s examination: 1. Automated exposure control 2. Adjustment of the mA and/or kV according to patient size 3. Use of iterative reconstruction technique. Comparison: Noncontrast head CT September 26, 2021 Any determination of stenosis is based on NASCET criteria. Head CTA: ICA: No stenosis, occlusion or aneurysm. MCA: No stenosis, occlusion or aneurysm. LAMONT: No stenosis, occlusion or aneurysm. 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 Basilar artery: Multifocal irregularity and narrowing of the basilar artery. No occlusion. Distal vertebral arteries: No stenosis, occlusion or aneurysm. No evidence of dural venous sinus thrombosis. Congenitally small right transverse and sigmoid venous sinuses. CT angiogram neck: Aortic arch: Mild retrolisthesis plaque within the aortic arch. Subclavian artery. Mild narrowing of the left proximal subclavian artery due to soft plaque. No occlu sandra. Common carotid arteries: No stenosis, occlusion or dissection. Internal carotid arteries: No stenosis, occlusion or dissection. Mild atheromatous plaque within the carotid bifurcations. Tortuous internal carotid arteries within the upper neck. External carotid arteries: Patent Vertebral arteries: Mild narrowing of the left proximal vertebral artery. No occlusion. Imaged lung apices are unremarkable. Soft tissues appear normal. Bones: Sclerotic lesion within the right lateral second rib, most likely bone island. Multilevel cerv ical spondylosis most prominent C5-C6 and C6-C7. Impression: CT angiogram head: 1. No intracranial arterial occlusion. 2. Multifocal irregularity and mild narrowing of the basilar artery. CT angiogram neck: 1. No arterial occlusion within the neck. 2. Mild narrowing of the left proximal vertebral and subclavian arteries. 3. Mild atheromatous plaque. Electronically signed by: Hernán Betts DO (09/26/2021 1:34 PM) [id number]
--- NOTE | 2021-09-26 13:47 | RAD ---
EXAMINATION: CTA CHEST_ABDOMEN_AND PELVIS. Technique: Axial images with coronal and sagittal reconstructions with MIP technique are performed of chest abdomen and pelvis with angiogram protocol. 75 cc of Omnipaque 350 administered intravenously. One or more of the following radiation dose reduction techniques was used: automated exposure control , adjustment of mA and/or KV according to patient size, and/or utilization of iterative reconstructio n technique. HISTORY: 45 years Male Reason: headache, dizzy, nausea COMPARISON: June 2020. FINDINGS: CTA chest: The thoracic aorta is normal in caliber. There is no dissection. Pulmonary arteries demonstrate no fi lling defects to suggest pulmonary embolism. The heart size is normal. There is no pericardial or ple ural effusion. There is no mediastinal mass or lymphadenopathy. Small the right hilar lymph node measuring catheter 1.1 cm is seen similar to July 01, 2020 study. No axillary lymphadenopathy. The lungs demonstrate no significant consolidation, mass or suspicious nodule. The osseous structures demonstrate mild degenerative changes. CTA abdomen and pelvis: The liver, gallbladder, pancreas, spleen, and adrenal glands appear unremarkable. The kidneys have sy mmetric enhancement. No hydronephrosis. There are from left renal cysts measuring up to 1.7 cm in siz e. The abdominal aorta is normal in caliber. There is no dissection. The major branches including the SM A, celiac trunk and the MARLENY are patent. The renal arteries are patent. There is an accessory renal ar marine on the right side is also patent. There is diverticulosis. No diverticulitis. The appendix is normal. No bowel obstruction. No significant free fluid or fluid collection in the abdomen or pelvis is seen. In the right inguinal canal is small amount of fluid and 3 cm structure only partially visualized, co uld represent retractile testis. The osseous structures demonstrate degenerative with multilevel prominent posterior osteophytes resul ting in spinal canal stenosis. IMPRESSION: CTA chest: No acute process. CT abdomen and pelvis: 1. No aortic dissection or aneurysm. 2. Diverticulosis. No diverticulitis. 3. The right inguinal canal demonstrates tiny amount of fluid and a partially visualized structure co uld represent a retracted high riding testicle. Electronically signed by: Saad Blake MD (09/26/2021 1:45 PM) [id number]
[2021-09-26] MEDS ORDERED: AMLO-186 PO (15:08)
[2021-09-26] MEDS ORDERED: LISI10TA16 PO (15:08)
[2021-09-26] MEDS ORDERED: METF500T16 PO (15:08)
[2021-09-26] MEDS ORDERED: CARV12.547 PO (15:08)
[2021-09-26 15:32] VITALS: BP 139/94
== END 2021-09-26 15:34 | disposition home or self-care (01) ==
LOC: ER 08:39
DX: E11.65 Type 2 diabetes mellitus with hyperglycemia (principal); I10 Essential (primary) hypertension; J45.909 Unspecified asthma, uncomplicated; F17.210 Nicotine dependence, cigarettes, uncomplicated; Z88.1 Allergy status to other antibiotic agents
CPT/HCPCS: 36415; 70450; 70496; 70498; 71045; 71275; 74177; 80053; 80307; 81001; 82550; 83690; 83735; 83880; 84100; 84484; 85025; 93005; 96360; 96374; 99285; G0480; J2405; J7030; Q9967